=== PATIENT | female | born 1995 | race Caucasian/White ===

== ENCOUNTER 2023-03-11 15:55 | Outpatient (CLI) | payer BC, SELFPAY ==
--- NOTE | 2023-03-11 16:00 | CRLHL7_ITS ---
For Patients: As a result of the Cures Act, medical imaging exams and procedure reports are released immediately into your electronic medical record. You may view this report before your referring provider. If you have questions, please contact your health care provider. CLINICAL HISTORY: Early with bleeding and cramping. Eight weeks 6 days by last menstrual period. TECHNIQUE: Grayscale and color Doppler images were acquired of the pelvis using a transvaginal approach. FINDINGS: There is an irregular appearing intrauterine gestational sac with mean sac diameter of 9.8 mm corresponding to 5 weeks 4 days. There is a pole of 4 mm corresponding to 6 weeks 1 day. No heart tones demonstrated. The uterus is otherwise homogeneous in echotexture. Left ovary measures 4.6 x 1 x 3 cm and is within normal limits. Normal appearing color flow is present in the left ovary. Right ovary measures 4.3 x 2.2 x 2.3 cm a cystic lesion with peripheral soft tissue density and flow measuring up to 2.4 cm. Bilateral adnexal regions as imaged are otherwise unremarkable. No free fluid evident. IMPRESSION: pole with no heart tones and irregular gestational sac, consistent with demise. Dictated by Alex Bray MD @ 03/11/2023 8:41:08 PM Dictated by: Alex Bray MD @ 03/11/2023 20:41:29 (Electronically Signed)
== END 2023-03-11 15:56 | disposition home or self-care (01) ==
LOC: US 15:56
PROVIDERS: Visit Provider Obstetrics & Gynecology
DX: O03.9 Complete or unspecified spontaneous abortion without complication (principal)
CPT/HCPCS: 76817

== ENCOUNTER 2023-03-11 20:21 | Emergency (ER) | payer BC, SELFPAY ==
[2023-03-11 20:25] VITALS: BP 116/72; PULSE 94; RESP 16; TEMP 36.7; O2SAT 97; BMI 25.8
--- NOTE | 2023-03-11 21:04 | ED_ITS ---
HPI - General Date Seen: 03/11/23 Chief complaint: Vaginal Bleeding Stated complaint: Miscarrying-[facility] Time Seen by Provider: 03/11/23 20:26 Source: patient Mode of arrival: ambulatory Limitations: no limitations History of Present Illness HPI Narrative: Patient is a 28-year-old female who is A1 whose current the having the 2nd miscarriage presenting to the emergency department for vaginal bleeding. She 1st noticed small 1 bleeding yesterday went to clinic today she had ultrasound done showing she is having a miscarriage. She is about 9 weeks along. States this is a 2nd miscarriage the previous 1 occurred about 7 and half weeks. She was told that she has increased bleeding or large clots to come to the emergency department to be evaluated. She says with past 2 hours she has gone through 3 pads and has passed large clots. She says the abdominal cramping has improved but she came in because she was told to. Denies lightheadedness or dizziness at this time. Related Data Home Medications Medication Instructions Recorded Confirmed No Known Home Medications 03/11/23 03/11/23 Allergies Allergy/AdvReac Type Severity Reaction Status Date / Time No Known Drug Allergies Allergy Verified 03/11/23 20:32 Review of Systems Status of ROS: Reports: 10 or more systems reviewed and unremarkable except as noted in History and below PFSH PFS Social History Non-prescribed substance use: denies use Exam Narrative: Exam Narrative: Const: Well-nourished, Well-developed, in mild distress Eyes: PERRL, no conjunctival injection, and symmetrical lids HENT: Atraumatic external nose and ears. Moist mucous membranes. Neck: Symmetric, trachea midline, No thyromegaly. CVS: RRR, No murmurs or gallops. Peripheral pulses 2+ and equal in all extremities RESP: Unlabored respiratory effort. Clear to auscultation bilaterally. GI: Nontender/Nondistended, No rebound or guarding. MSK:Extremities w/o deformity, Normal Active ROM Skin: Warm, Dry. No rashes or lesions. Neuro: Normal Muscle tone, No focal neurological deficits. Psych: Awake, Alert, & Oriented x3. Appropriate mood and affect. Const: Vital Signs, click to edit/add: Vital Signs - 24 hr 03/11/23 20:25 Temperature 98.1 F Pulse Rate [Pulse Oximeter] 94 Respiratory Rate 16 Blood Pressure [Ri ght Upper Arm] 116/72 Pulse Oximetry 97 Oxygen Delivery Me thod Room Air Course Vital Signs Vital signs: Initial Vital Signs Temperature 98.1 F 03/11/23 20:25 Temperature Source Temporal Artery Scan 03/11/23 20:25 Pulse Rate 94 03/11/23 20:25 Respiratory Rate 16 03/11/23 20:25 Blood Pressure 116/72 03/11/23 20:25 Blood Pressure Mean 86 03/11/23 20:25 Blood Pressure Position Supine 03/11/23 20:25 Pulse Oximetry 97 03/11/23 20:25 Oxygen Delivery Method Room Air 03/11/23 20:25 Vital Signs Temperature 98.1 F 03/11/23 20:25 Pulse Rate 94 03/11/23 20:25 Respiratory Rate 16 03/11/23 20:25 Blood Pressure 116/72 03/11/23 20:25 Pulse Oximetry 97 03/11/23 20:25 Oxygen Delivery Method Room Air 03/11/23 20:25 Temperature 98.1 F 03/11/23 20:25 Pulse Rate 94 03/11/23 20:25 Respiratory Rate 16 03/11/23 20:25 Blood Pressure 116/72 03/11/23 20:25 Pulse Oximetry 97 03/11/23 20:25 Oxygen Delivery Method Room Air 03/11/23 20:25 MDM - OB/Uterine Contractions MDM Narrative Medical decision making narrative: Patient is a 28-year-old female here after a miscarriage with increased bleeding. Says the bleeding has slowed down now but has gone to 3 pads in the past 2 hours. Pain is also resolved. Vital signs are stable. Did order CBC and BMP which return showing no concerning abnormalities. I did speak to Dr. Ontiveros of OB and she states on the way to confirm that the miscarriage has completed would be to do another ultrasound. She says there were 2 options we can do it here in the emergency department right now. We can also, i if the patient is stable and is agreeable, we can discharge her and she can follow up outpatient with Ob to have an ultrasound tomorrow morning. I spoke to the patient which she prefers and she states she would rather do it tomorrow. She states the bleeding has not completely stopped yet but has improved quite a bit. Patient will be discharged home. Lab Data Labs: Lab Results 03/11/23 Range/Units 21:07 WBC 9.44 (4.50-11.00) K/uL RBC 4.53 (4.00-5.20) m/uL Hgb 12.4 (12.0-16.0) gm/dL Hct 37.7 (33.0-51.0) % MCV 83 (80-100) fL MCH 27 (26-34) pg MCHC 33 (32-36) gm/dL RDW Coeff of [place] 12.6 (11.5-15.5) % Plt Count 222 (140-440) K/uL Neut % (Auto) 71.3 (42.0-72.0) % Lymph % (Auto) 23.4 (20-44) % [place] % (Auto) 4.1 (0.0-11.0) % Eos % (Auto) 0.8 (0.0-7.0) % Baso % (Auto) 0.2 (0.0-3.0) % Neut # (Auto) 6.72 (1.7-7.0) K/uL Lymph # (Auto) 2.21 (0.90-2.90) K/uL [place] # (Auto) 0.40 (0.00-0.90) K/UL Eos # (Auto) 0.08 (0.00-0.50) K/uL Baso # (Auto) 0.02 (0.00-0.30) K/uL Abs Immat Gran (auto) 0.02 (0.00-0.30) K/uL Imm/Tot Granulo (auto) 0.2 % Sodium 137 (135-149) mmol/L Potassium 3.3 L (3.6-5.1) mmol/L Chloride 105 (96-114) mmol/L Carbon Dioxide 22 (20-32) mmol/L Anion Gap 10 (7-15) mEq/L BUN 14 (5-24) mg/dL Creatinine 0.7 (0.5-1.5) mg/dL Estimated Creat Clear 116.36 Estimated GFR 121 ml/min Glucose 108 (60-115) mg/dL Calcium 9.3 (8.4-10.6) mg/dL Discharge Plan Discharge Clinical Impression: Miscarriage Patient Disposition: Home, Self-Care Condition: Stable Instructions: Miscarriage (ED) Additional Instructions: Follow-up with OB tomorrow morning for a repeat ultrasound to confirm to completion of the miscarriage. If symptoms worsen overnight return to the emergency department. Prescriptions: No Action No Known Home Medications Follow Up/Referrals: Provider,Not a Local [Primary Care Provider] - Stand Alone Forms: [employer] Info Instructions
[2023-03-11 21:14] LABS: Basophils Absolute Auto 0.02 K/uL (0.00-0.30); Basophils Percent Auto 0.2 % (0.0-3.0); Eosinophils Absolute Auto 0.08 K/uL (0.00-0.50); Eosinophils Percent Auto 0.8 % (0.0-7.0); Hematocrit 37.7 % (33.0-51.0); Hemoglobin* 12.4 gm/dL (12.0-16.0); Immature Granulocytes Abs Auto 0.02 K/uL (0.00-0.30); Immature Granulocytes Pct Auto 0.2 %; Lymphocytes Absolute Auto 2.21 K/uL (0.90-2.90); Lymphocytes Percent Auto 23.4 % (20-44); Mean Corpuscular HGB Conc 33 gm/dL (32-36); Mean Corpuscular Hemoglobin 27 pg (26-34); Mean Corpuscular Volume 83 fL (80-100); Monocytes Percent Auto 4.1 % (0.0-11.0); Neutrophils Absolute Auto 6.72 K/uL (1.7-7.0); Neutrophils Percent Auto 71.3 % (42.0-72.0); Platelet Count* 222 K/uL (140-440); RDW Coefficient of Variation % 12.6 % (11.5-15.5); Red Blood Count 4.53 m/uL (4.00-5.20); White Blood Count* 9.44 K/uL (4.50-11.00)
[2023-03-11 21:16] LABS: Slide Review Reflex No
[2023-03-11 21:29] LABS: Chloride* 105 mmol/L (96-114)
[2023-03-11 21:30] LABS: Potassium* 3.3 mmol/L (3.6-5.1); Sodium* 137 mmol/L (135-149)
[2023-03-11 21:32] LABS: Creatinine* 0.7 mg/dL (0.5-1.5); Est. Creatinine Clearance* 116.36; Estimated Glomerular Filt Rate 121 ml/min
[2023-03-11 21:33] LABS: Anion Gap 10 mEq/L (7-15); Blood Urea Nitrogen* 14 mg/dL (5-24); Calcium* 9.3 mg/dL (8.4-10.6); Carbon Dioxide* 22 mmol/L (20-32); Glucose* 108 mg/dL (60-115)
--- NOTE | 2023-03-11 21:47 | PC.NURSE ---
states understanding to DC instructions. patient bleeding has slowed down at the time of DC. DC ambulatory in no distress
== END 2023-03-11 21:48 | disposition home or self-care (01) ==
PROVIDERS: Emergency Provider Student in an Organized Health Care Education/Training Program
DX: O03.9 Complete or unspecified spontaneous abortion without complication (principal)
CPT/HCPCS: 36415; 80048; 85025; 86850; 86900; 86901; 99283

== ENCOUNTER 2023-03-16 11:05 | Outpatient (CLI) | payer BC, SELFPAY ==
--- NOTE | 2023-03-16 11:00 | CRLHL7_ITS ---
For Patients: As a result of the Century Cures Act, medical imaging exams and procedure reports are released immediately into your electronic medical record. You may view this report before your referring provider. If you have questions, please contact your health care provider. INDICATION: Complete or unspecified spontaneous COMPARISON: 03/11/2023 TECHNIQUE: Real-time woods-scale imaging of the pelvis was performed. FINDINGS: Corpus luteal cyst right ovary measuring 2.0 x 1.6 x 2.1 cm. Normal left ovary measuring 2.7 x 1.3 x 1.9 cm. Endometrium is heterogeneous and measures 2 cm. No endometrial fluid. No gestational sac or pole. IMPRESSION: No intrauterine or ectopic . Dictated by Erich Moyer MD @ 03/16/2023 1:02:48 PM (Electronically Signed)
== END 2023-03-16 11:06 | disposition home or self-care (01) ==
LOC: US 11:06
PROVIDERS: Visit Provider Obstetrics & Gynecology
DX: O03.9 Complete or unspecified spontaneous abortion without complication (principal)
CPT/HCPCS: 76817; 84702

== ENCOUNTER 2024-09-13 13:38 | Outpatient (CLI) | payer BC, SELFPAY ==
[2024-09-16 15:16] LABS: HPV Source Cervix; HPV, High Risk by TMA Not Detected
== END 2024-09-13 13:39 | disposition home or self-care (01) ==
PROVIDERS: Visit Provider Registered Nurse
DX: Z12.4 Encounter for screening for malignant neoplasm of cervix (principal)
CPT/HCPCS: 87624; 87625; 88141; 88142

== ENCOUNTER 2024-12-14 11:48 | Outpatient (CLI) | payer BC, SELFPAY ==
[2024-12-14 23:15] LABS: Bacterial Vaginosis* POSITIVE (Negative); Candida glab/krus NOT DETECTED (No Detected)
[2024-12-14 23:45] LABS: Chlamydia DNA Amplified* NOT DETECTED (No Detected); GC DNA Amplified* NOT DETECTED (No Detected)
== END 2024-12-14 11:49 | disposition home or self-care (01) ==
PROVIDERS: Visit Provider Registered Nurse
DX: R10.2 Pelvic and perineal pain (principal)
CPT/HCPCS: 81513; 87086; 87481; 87491; 87591; 87661

== ENCOUNTER 2024-12-18 13:43 | Outpatient (CLI) | payer BC, SELFPAY ==
--- NOTE | 2024-12-18 13:45 | CRLHL7_ITS ---
For Patients: As a result of the Century Cures Act, medical imaging exams and procedure reports are released immediately into your electronic medical record. You may view this report before your referring provider. If you have questions, please contact your health care provider. CLINICAL HISTORY: Pelvic pain TECHNIQUE: Real time, woods scale images were acquired of the pelvis using a transabdominal and transvaginal approach. Color Doppler analysis was performed of the ovaries. FINDINGS: The uterus appears unremarkable. Endometrium measures 9 millimeters. Uterus measures 8.3 x 4 x 4.3 centimeters. Right ovary measures 3.6 x 2.6 x 2.6 centimeters complex right ovarian cyst measuring 2.4 centimeters probably reflects a corpus luteum cyst. Left ovary measures 3 x 1.8 x 1.7 centimeters Normal blood flow to both ovaries. IMPRESSION: 1. Probable corpus luteum cyst on the right. Normal blood flow to both ovaries. Dictated by Starr Castillo MD @ 12/23/2024 6:21:42 AM (Electronically Signed)
== END 2024-12-18 13:44 | disposition home or self-care (01) ==
LOC: US 13:43
PROVIDERS: Visit Provider Registered Nurse
DX: R10.2 Pelvic and perineal pain (principal); N83.291 Other ovarian cyst, right side
CPT/HCPCS: 76830; 76856; 93976